=== PATIENT | female | born 1965 | race Caucasian/White ===

== ENCOUNTER → 2020-09-15 | Outpatient (CLI) | payer SELFPAY ==
[~2020-09-15] MED LIST: IBUP200; INSLI100I; INSULANI; WARF3
== END | disposition home or self-care (01) ==
LOC: LAB SHORT 14:15 → LAB 14:15
PROVIDERS: Family Medicine
DX: Z12.4 Encounter for screening for malignant neoplasm of cervix (principal)
CPT/HCPCS: G0145

== ENCOUNTER → 2023-07-27 | Outpatient (CLI) | payer SELFPAY ==
[2023-07-28 13:04] LABS: Stool Occult Bld Immuno 1 Negative (NEGATIVE)
== END | disposition home or self-care (01) ==
LOC: LAB 16:35 → LAB SHORT 16:35
PROVIDERS: Family Medicine
DX: Z12.11 Encounter for screening for malignant neoplasm of colon (principal)
CPT/HCPCS: G0328

== ENCOUNTER → 2024-03-28 | Outpatient (CLI) | payer OTHER ==
[2024-04-04 07:08] LABS: HOURS COLLECTED 24 hr; TOTAL VOLUME 1400 mL
== END ==
LOC: LAB 08:49 → LAB SHORT 08:49
PROVIDERS: Family Medicine
DX: R63.4 Abnormal weight loss (principal); E11.8 Type 2 diabetes mellitus with unspecified complications; G83.10 Monoplegia of lower limb affecting unspecified side; M62.50 Muscle wasting and atrophy, not elsewhere classified, unspecified site; N93.9 Abnormal uterine and vaginal bleeding, unspecified
CPT/HCPCS: 81050; 84156; 84166; 86335

== ENCOUNTER 2025-08-04 12:17 | Day surgery (SDC) | payer OTHER ==
[2025-08-04] VITALS (18 sets, daily range): BP systolic 91–181; BP diastolic 47–107
[~2025-08-04] VITALS: Ht 152.4 cm; Wt 44.9 kg
[~2025-08-04 12:17] MED LIST changes: +ALOGLIPTIN25 M1 PO; +GABA300 PO; +LOSA25 PO; +METF500 PO
--- NOTE | 2025-08-04 13:22 | NUR ---
Pre-Op teaching done. Pt verbalizes understanding. Ambulatory in Day Surgery WITH WALKER DUE TO DROP FOOT LEFT FOOT. History, Chart, Medications and Allergies reviewed before start of procedure. Patient States Post-Procedure ride home has been arranged.
--- NOTE | 2025-08-04 14:24 | NUR ---
08/04/25 1424 Gaby Babcock CONFIRMED AND REVIEWED H&P, MEDCICATIONS, ALLERGIES, MEDICAL HISTORY, RESPIRATORY HISTORY, VITAL SIGNS, 3-LEAD EKG, CONSENTS, AND PHYSICIAN ORDERS. PATIENT CONFIRMS NPO STATUS AND AGREES WITH SCHEDULED PROCEDURE. MONITOR INTACT WITH CONTINUOUS PULSE OXIMETRY, CAPNOGRAPHY, 3-LEAD EKG, INTERMITTENT BP. SUPPLEMENTAL O2 TO BE TITRATED THROUGHOUT PROCEDURE TO MAINTAIN O2 SATURATION ABOVE 90%. PATIENT DETERMINED TO BE ASA APPROPRIATE FOR PROPOFOL SEDATION PRIOR TO START OF PROCEDURE BY .MALLAMPATI CLASS 2 AIRWAY: COMPLETE VISUALIZATION OF THE UVULA.
--- NOTE | 2025-08-04 15:15 | NUR ---
Discharge instructions reviewed with patient. Patient verbalizes understanding. Copy given to patient to take home. Patient States Post-Procedure ride home has been arranged. Discharged via wheelchair to private car for ride home.
== END 2025-08-04 15:17 | disposition home or self-care (01) ==
LOC: ORSCMMR 12:17 → ORD 13:30 → ORSCMMR 15:17
PROVIDERS: Surgery
PROC: 0DBL8ZX Excision of Transverse Colon, Via Natural or Artificial Opening Endoscopic, Diagnostic (ICD-10-PCS; principal; 2025-08-04 13:30)
DX: Z12.11 Encounter for screening for malignant neoplasm of colon (principal); D12.3 Benign neoplasm of transverse colon; Z86.0100 Personal history of colon polyps, unspecified; I10 Essential (primary) hypertension; E11.9 Type 2 diabetes mellitus without complications; Z79.84 Long term (current) use of oral hypoglycemic drugs; Z79.899 Other long term (current) drug therapy
CPT/HCPCS: 82947; 88305; J2704; J7120